=== PATIENT | male | born 1955 | race Caucasian/White ===

== ENCOUNTER 2022-04-07 00:21 | Emergency (ER) | payer MEDICARE, SELFPAY ==
--- NOTE | ~2022-04-07 | XR_ITS ---
EXAMINATION: XR HAND, RIGHT CLINICAL INFORMATION: Swelling COMPARISON: None TECHNIQUE: PA, lateral, and oblique views of the right hand. FINDINGS: No fracture or dislocation. Joint space narrowing with osteophyte formation at the third metacarpophalangeal joint. No cortical disruption. Soft tissue swelling of the third digit adjacent to the proximal phalanx. No underlying osseous erosion. No radiopaque foreign body. XR/XR hand RT 2V IMPRESSION: Third digit soft tissue swelling without associated osseous abnormality. Mild degenerative change of the third metacarpophalangeal joint.
[2022-04-07 00:36] VITALS: BP 127/86; PULSE 75; RESP 78; TEMP 37.1; O2SAT 99; BMI 20.7
--- NOTE | 2022-04-07 01:32 | ED.GENADULT ---
HPI - General Adult General Chief complaint: Extremity Problem Stated complaint: infected finger Time Seen by Provider: 04/07/22 01:27 Source: patient Limitations: no limitations History of Present Illness HPI narrative: This is a 66-year-old male who developed what he thought was an ingrown hair on his right middle finger on the radial aspect about 5 days ago. He said initially was like us small bump. Patient tried sticking a sewing needle into it to Bola it but was unable to get any pus out. He has noted that the areas become progressively more red and swollen. He denies any fever. He denies any history of diabetes. He is on Suboxone. Related Data Previous Rx's Medication Instructions Recorded cephalexin 750 mg capsule 750 mg PO TID #20 caps 04/07/22 Allergies Allergy/AdvReac Type Severity Reaction Status Date / Time No Known Allergies Allergy Unverified 05/08/20 15:07 [No Known Allergies*] Review of Systems Constitutional: Constitutional: Denies fever(s) Integumentary/Breasts: Skin/Breast: Reports swelling (Right middle finger) and Reports wounds (Right middle finger) [facility] Social History Social History Advance Directives: No Physical Exam ED Vital Signs: Vital Signs - 24 hr 04/07/22 00:36 Temperature 98.8 F Pulse Rate 75 Respiratory Rate 78 H Blood Pressure 127/86 Pulse Oximetry 99 Oxygen Delivery Method Room Air BMI result Body Mass Index 20.7 Const General: no acute distress Orientation/consciousness: patient oriented x3 HENMT Head: Yes normal to inspection General nose exam: Normal external nose present Mouth: moist mucous membranes Throat: Yes posterior oropharynx normal, Yes tonsils normal and Yes uvula midline Eyes Eyelids: Yes eyelids normal Conjunctivae: conjunctivae normal Pupils: Equal, round and reactive pupils present Neck Neck: Yes supple Resp Effort & Inspection: normal respiratory effort Auscultation: clear to auscultation bilaterally Cardio Rate: regular rate Rhythm: regular rhythm Heart sounds: S1 normal heart sound present, S2 normal heart sound present, no gallops, no murmurs and no rubs GI Inspection: No distended Palpation (GI): Soft to palpation and nontender Auscultation: normal bowel sounds Skin Other: Right middle finger with erythema to the radial aspect of the proximal segment, with some focal swelling and spontaneous drainage of beige colored pus. Erythema does not extend onto the hand. Erythema is not circumferential. Patient has full range of motion of the finger. Area of drainage this on the radial aspect, not overlying the extensor tendon. Approximately 2-3 mm opening in the skin where the pus is draining. General skin exam: other (Warm and dry) Neuro General: patient oriented x3 and CN's II-XI intact bilaterally Cranial nerves: Yes Equal, round and reactive pupils present Extrem General: Yes no pedal edema Psych Affect: normal affect Attitude: cooperative Medical Decision Making [facility] Narrative Medical decision making narrative: Patient with an abscess to his right middle finger. This was already draining on its own and is much pus as possible was milked from the wound. The wound was irrigated with normal saline. A culture was sent of the pus which had drained. Patient is being given Ancef 2 g IV and will be started on Keflex, was advised to soak his hand 3 times a day in warm water for 10 minutes, and try to milk out any additional pus. Imaging Data Right hand x-ray: Radiologist's impression: Soft tissue swelling of the proximal middle finger, otherwise negative Discharge Plan Discharge Clinical Impression: Cellulitis and abscess of hand Patient Disposition: Home, Self-Care Instructions: Cellulitis (ED), Abscess (ED) Additional Instructions: Soak the involved hand in warm water for 10 minutes 3 times a day, and while soaking try to milk out any additional pus from the wound. Take antibiotics as prescribed. Return for any worsened symptoms such as worsened redness, swelling, fever. Follow up with your primary care physician Prescriptions: New cephalexin 750 mg capsule 750 mg PO TID Qty: 20 0RF Interventions: ED Discharge Assessment Last Done: 04/07/22 02:49 Discharge Date/Time: 04/07/22 02:50
[2022-04-07] MEDS: ceFAZolin Sodium 1.5 GM in 0.9 % Sodium Chloride 100 ML IV (02:03)
[2022-04-07] MEDS: Ketorolac Tromethamine 15 MG/ML VIAL IVPUSH (02:03)
== END 2022-04-07 02:50 | disposition home or self-care (01) ==
PROVIDERS: Emergency Provider Emergency Medicine
DX: L02.511 Cutaneous abscess of right hand (principal); L03.011 Cellulitis of right finger; B95.62 Methicillin resistant Staphylococcus aureus infection as the cause of diseases classified elsewhere; F11.20 Opioid dependence, uncomplicated
CPT/HCPCS: 73120; 87071; 87077; 87186; 87205; 96365; 96375; 99283; 99284; J0690; J1885

== ENCOUNTER 2023-11-23 15:28 | Outpatient (AMB) | payer MEDICARE, SELFPAY ==
[2023-11-23 15:42] VITALS: BP 132/70; PULSE 74; TEMP 36.6; O2SAT 98
--- NOTE | 2023-11-23 15:42 | AM.OFFWIN_ITS ---
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 He has tried OTC remedies with minimal relief. Review of Systems Const All systems reviewed & are unremarkable except as noted in HPI and below Physical Exam Vital Signs: Last Vital Signs Temp 97.8 F 11/23/23 15:42 Pulse 74 11/23/23 15:42 BP 132/70 11/23/23 15:42 Pulse Ox 98 11/23/23 15:42 Const General: comfortable and no acute distress Nutritional Appearance: underweight Orientation/consciousness: patient oriented x3 Back/Spine/Pelvis Cervical Spine: normal cervical lordosis Thoracic/Lumbar Spine: thoraco-lumbar ROM limited and lumbar spinal tenderness Neuro General: patient oriented x3 and gait normal Psych Speech and movement: Normal speech and movement present Assessment & Plan Assessment & Plan (1) Chronic back pain: Code(s): M54.9 - Dorsalgia, unspecified; G89.29 - Other chronic pain Qualifiers: Back pain laterality: midline Back pain location: low back pain Sciatica presence: without sciatica Qualified Code(s): M54.50 - Low back pain, unspecified; G89.29 - Other chronic pain Plan: - IceHot - Acetaminophen for pain relief - Rest Orders: Referrals Chiropractic Referral G89.29 - Other chronic pain, M54.50 - Low back pain, unspecified Coding Level of Care Code New Pt Level 3 (73460) Diagnoses Chronic midline low back pain without sciatica M54.50; G89.29 Back pain laterality: midline Back pain location: low back pain Sciatica presence: without sciatica Time Spent (min) 15
== END 2023-11-23 16:16 | disposition home or self-care (01) ==
PROVIDERS: Visit Provider Nurse Practitioner Family
DX: M54.50 Low back pain, unspecified (principal); G89.29 Other chronic pain
CPT/HCPCS: 99203